=== PATIENT | female | born 1930 | race Caucasian/White ===

== ENCOUNTER 2017-02-23 12:12 | Inpatient (IN) | payer MEDICARE, BC ==
[2017-02-23] MEDS ORDERED: Sodium Chloride 0.9% 10 ML Syringe FLUSH PRN (12:17)
--- NOTE | 2017-02-23 12:55 | CT ---
Head CT Technique: Multiple axial sections through the brain were obtained. Intravenous contrast was not utilized. Comparison: No previous intracranial imaging. 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 Ventricles along with basal cisterns and sulci over convexities are mildly prominent. Diminished density noted within the periventricular white matter and subcortical white matter compatible with small vessel ischemic demyelination change. Several old lacunar infarcts are noted within the basal ganglia. No other abnormal parenchymal densities are seen. No evidence of intracranial hemorrhage. No midline shift or mass effect is seen. Atherosclerotic calcification seen within the basilar artery and within the carotid siphon. Mild areas of mucosal thickening are seen within the frontal and ethmoid sinuses. No acute calvarial abnormality is seen. Impression: 1. Senescent change as noted above. No acute abnormality is appreciated on noncontrast head CT study. Diagnostic code #2
--- NOTE | 2017-02-23 13:27 | CR ---
Right forearm: Two views of the right forearm were obtained. Bony structures are osteoporotic. No fracture or other bony abnormality is seen. Soft tissue swelling is noted. Impression: 1. Osteopenia and soft tissue swelling. 2. No acute bony abnormality is identified. Diagnostic code #2
[2017-02-23] MEDS ORDERED: Aspirin 81 MG Tab.Chew PO ONE (16:05)
--- NOTE | 2017-02-23 17:48 | EDM.PDOC ---
ED HPI GENERAL MEDICAL PROBLEM - General Chief Complaint: Neuro Symptoms/Deficits Stated Complaint: [facility] Time Seen by Provider: 02/23/17 12:16 Source of Information: Reports: Patient History Limitations: Reports: No Limitations - History of Present Illness INITIAL COMMENTS - FREE TEXT/NARRATIVE: The patient presents with right sided weakness. Her son found her on her floor this morning. He thinks she has been down since Thursday. The last time know well was 8am Thursday. He went out of town and found her this morning. She has right sided facial droop and right arm and leg weakness. She could not get up off the floor. She has no headache, fever, chills, cough , congestion and runny nose. She has no chest pain or shortness of breath. Onset: Sudden Duration: Day(s): (Last time known well was 8am Thursday) Location: Reports: Face, Upper Extremity, Right, Lower Extremity, Right Severity: Moderate Improves with: Reports: None Worsens with: Reports: None Associated Symptoms: Reports: No Other Symptoms Right Arm Pain Score (Numeric/FACES): 5 - Related Data Allergies Allergy/AdvReac Type Severity Reaction Status Date / Time No Known Allergies Allergy Verified 02/23/17 12:30 Home Meds: Home Meds Aspirin 81 mg PO BRK 02/23/17 [History] Bisoprolol/Hydrochlorothiazide [Ziac 10-6.25 MG] 1 tab PO DAILY 02/23/17 [ History] Latanoprost [Xalatan 0.005% Ophth Soln] 2.5 ml EYEBOTH BEDTIME 02/23/17 [History ] Multivitamin with Minerals [Multiple Vitamin] 1 cap PO DAILY 02/23/17 [History] cloNIDine [Catapres] 0.1 mg PO DAILY 02/23/17 [History] Past Medical History HEENT History: Reports: Impaired Vision Other HEENT History: wears corrective lenses Cardiovascular History: Reports: High Cholesterol, Hypertension [employer] EDUCATION History: Reports: Social & Family History - Tobacco Use Smoking Status *Q: Current Every Day Smoker Years of Tobacco use: 50 Packs/Tins Daily: 0.3 Used Tobacco, but Quit: No Second Hand Smoke Exposure: No - Caffeine Use Caffeine Use: Reports: Coffee - Recreational Drug Use Recreational Drug Use: No ED ROS GENERAL - Review of Systems Review Of Systems: See Below Constitutional: Reports: No Symptoms HEENT: Reports: No Symptoms Respiratory: Reports: No Symptoms Cardiovascular: Reports: No Symptoms Endocrine: Reports: No Symptoms GI/Abdominal: Reports: No Symptoms : Reports: No Symptoms Musculoskeletal: Reports: No Symptoms Skin: Reports: No Symptoms Neurological: Reports: Weakness (Right sided weakness and trouble speaking) ED EXAM, NEURO - Physical Exam Exam: See Below Exam Limited By: No Limitations General Appearance: Alert, No Apparent Distress Ears: Normal External Exam Nose: Normal Inspection Head Exam: Atraumatic, Normocephalic Neck: Normal Inspection Respiratory/Chest: No Respiratory Distress, Lungs Clear, Normal Breath Sounds Cardiovascular: Regular Rate, Rhythm, No Edema, No Murmur GI/Abdominal: Soft, Non-Tender, No Organomegaly, No Mass Neurological: Alert, Oriented x 3, Other (Right sided facial droop, right arm weakness and right arm weakness) Extremities: Other (Edema and ecchymosis to the right forearm. Erythema to the right hip but no pain upon palpation.) EKG INTERPRETATION EKG Date: 02/23/17 Time: 12:27 Rhythm: NSR Rate (Beats/Min): 91 [place]: Normal P-Wave: Present QRS: Normal ST-T: Normal QT: Normal EKG Interpretation Comments: LVH Course - Vital Signs Last Recorded V/S: Last Vital Signs Temp 99 F 02/23/17 12:25 Pulse 90 02/23/17 12:25 Resp 18 02/23/17 12:25 BP 166/141 H 02/23/17 12:25 Pulse Ox 90 L 02/23/17 12:25 - Orders/Labs/Meds Orders: Active Orders 24 hr Category Date Time Status Cardiac Monitoring [RC] . DIRECTED Care 02/23/17 12:17 Active EKG Documentation Completion [RC] STAT Care 02/23/17 12:17 Active Oxygen Therapy [RC] PRN Care 02/23/17 12:17 Active Peripheral IV Care [RC] Q2HR Care 02/23/17 12:17 Active CULTURE URINE [RM] Stat Lab 02/23/17 13:04 Received Sodium Chloride 0.9% [Saline Flush] Med 02/23/17 12:17 Active 10 ml FLUSH ASDIRECTED PRN Peripheral IV Insertion Adult [OM.PC] Stat Oth 02/23/17 12:17 Ordered Medication Orders Atenolol (Tenormin) 100 mg PO DAILY GURMEET Hydrochlorothiazide (Hydrochlorothiazide) 25 mg PO DAILY GURMEET Latanoprost (Xalatan 0.005% Ophth Soln) 0 ml EYEBOTH BEDTIME GURMEET Sodium Chloride (Saline Flush) 10 ml FLUSH ASDIRECTED PRN PRN Reason: Keep Vein Open Last Admin: 02/23/17 12:59 Dose: 10 ml Labs: Laboratory Tests 02/23/17 02/23/17 02/23/17 Range/Units 12:55 12:55 12:55 WBC 17.62 H (3.98-10.04) K/mm3 RBC 5.43 H (3.98-5.22) M/mm3 Hgb 16.8 H (11.2-15.7) gm/L Hct 48.7 H (34.1-44.9) % MCV 89.7 (79.4-94.8) fl MCH 30.9 (25.6-32.2) pg MCHC 34.5 (32.2-35.5) g/dl RDW Std Deviation 45.7 (36.4-46.3) fL Plt Count 410 H (182-369) K/mm3 MPV 9.9 (9.4-12.3) fl Neut % (Auto) 82.7 H (34.0-71.1) % Lymph % (Auto) 11.5 L (19.3-51.7) % Placer % (Auto) 5.4 (4.7-12.5) % Eos % (Auto) 0.1 L (0.7-5.8) Baso % (Auto) 0.1 (0.1-1.2) % Neut # (Auto) 14.58 H (1.56-6.13) K/mm3 Lymph # (Auto) 2.02 (1.18-3.74) K/mm3 Placer # (Auto) 0.95 H (0.24-0.36) K/mm3 Eos # (Auto) 0.01 L (0.04-0.36) K/mm3 Baso # (Auto) 0.02 (0.01-0.08) K/mm3 Manual Slide Review Normal smear PT 11.3 (8.0-13.0) SECONDS INR 1.03 APTT 24 (22-36) SECONDS Sodium 138 (136-145) mEq/L Potassium 3.4 L (3.5-5.1) mEq/L Chloride 99 (98-107) mEq/L Carbon Dioxide 25 (21-32) mEq/L Anion Gap 17.4 H (5-15) BUN 20 H (7-18) mg/dL Creatinine 0.8 (0.55-1.02) mg/dL Est Cr Clr Drug Dosing 40.11 mL/min Estimated GFR (MDRD) > 60 (>60) mL/min BUN/Creatinine Ratio 25.0 H (14-18) Glucose 113 (83-115) mg/dL Calcium 9.7 (8.5-10.1) mg/dL Total Bilirubin 0.9 (0.2-1.0) mg/dL AST 50 H (15-37) U/L ALT 40 (14-59) U/L Alkaline Phosphatase 92 (46-116) U/L Troponin I 0.043 (0.00-0.056) ng/mL Total Protein 7.0 (6.4-8.2) g/dl Albumin 3.6 (3.4-5.0) g/dl Globulin 3.4 gm/dL Albumin/Globulin Ratio 1.1 (1-2) Urine Color (Yellow) Urine Appearance (Clear) Urine pH (5.0-8.0) Ur Specific [place] (1.005-1.030) Urine Protein (Negative) Urine Glucose (UA) (Negative) Urine Ketones (Negative) Urine Occult Blood (Negative) Urine Nitrite (Negative) Urine Bilirubin (Negative) Urine Urobilinogen (0.2-1.0) Ur Leukocyte Esterase (Negative) Urine RBC (0-5) /hpf Urine WBC (0-5) /hpf Ur Epithelial Cells Ur Squamous Epith Cells (0-5) /hpf Urine Bacteria (FEW) /hpf Urine Mucus (FEW) /hpf 02/23/17 Range/Units 13:04 WBC (3.98-10.04) K/mm3 RBC (3.98-5.22) M/mm3 Hgb (11.2-15.7) gm/L Hct (34.1-44.9) % MCV (79.4-94.8) fl MCH (25.6-32.2) pg MCHC (32.2-35.5) g/dl RDW Std Deviation (36.4-46.3) fL Plt Count (182-369) K/mm3 MPV (9.4-12.3) fl Neut % (Auto) (34.0-71.1) % Lymph % (Auto) (19.3-51.7) % Placer % (Auto) (4.7-12.5) % Eos % (Auto) (0.7-5.8) Baso % (Auto) (0.1-1.2) % Neut # (Auto) (1.56-6.13) K/mm3 Lymph # (Auto) (1.18-3.74) K/mm3 Placer # (Auto) (0.24-0.36) K/mm3 Eos # (Auto) (0.04-0.36) K/mm3 Baso # (Auto) (0.01-0.08) K/mm3 Manual Slide Review PT (8.0-13.0) SECONDS INR APTT (22-36) SECONDS Sodium (136-145) mEq/L Potassium (3.5-5.1) mEq/L Chloride (98-107) mEq/L Carbon Dioxide (21-32) mEq/L Anion Gap (5-15) BUN (7-18) mg/dL Creatinine (0.55-1.02) mg/dL Est Cr Clr Drug Dosing mL/min Estimated GFR (MDRD) (>60) mL/min BUN/Creatinine Ratio (14-18) Glucose (83-115) mg/dL Calcium (8.5-10.1) mg/dL Total Bilirubin (0.2-1.0) mg/dL AST (15-37) U/L ALT (14-59) U/L Alkaline Phosphatase (46-116) U/L Troponin I (0.00-0.056) ng/mL Total Protein (6.4-8.2) g/dl Albumin (3.4-5.0) g/dl Globulin gm/dL Albumin/Globulin Ratio (1-2) Urine Color Yellow (Yellow) Urine Appearance Clear (Clear) Urine pH 6.0 (5.0-8.0) Ur Specific [place] > or = 1.030 (1.005-1.030) Urine Protein 2+ H (Negative) Urine Glucose (UA) Negative (Negative) Urine Ketones Trace H (Negative) Urine Occult Blood 2+ H (Negative) Urine Nitrite Negative (Negative) Urine Bilirubin 1+ H (Negative) Urine Urobilinogen 0.2 (0.2-1.0) Ur Leukocyte Esterase Trace H (Negative) Urine RBC 10-20 H (0-5) /hpf Urine WBC 5-10 H (0-5) /hpf Ur Epithelial Cells Not Reportable Ur Squamous Epith Cells 0-5 (0-5) /hpf Urine Bacteria Moderate H (FEW) /hpf Urine Mucus Few (FEW) /hpf Meds: Medications Generic Name Dose Route Start Last Admin Trade Name Freq PRN Reason Stop Dose Admin Atenolol 100 mg 02/24/17 09:00 Tenormin PO DAILY GURMEET Hydrochlorothiazide 25 mg 02/24/17 09:00 Hydrochlorothiazide PO DAILY GURMEET Latanoprost 0 ml 02/23/17 21:00 Xalatan 0.005% Ophth Soln EYEBOTH BEDTIME GURMEET Sodium Chloride 10 ml 02/23/17 12:17 02/23/17 12:59 Saline Flush FLUSH 10 ml ASDIRECTED PRN Administration Keep Vein Open Discontinued Medications Generic Name Dose Route Start Last Admin Trade Name Freq PRN Reason Stop Dose Admin Aspirin 324 mg 02/23/17 16:05 02/23/17 16:50 Aspirin PO 02/23/17 16:06 324 mg ONETIME ONE Administration - Re-Assessments/Exams Free Text/Narrative Re-Assessment/Exam: 02/23/17 17:50 A stroke alert was called with last known well 8am Thursday. I went to the room right away. Her CT shows old infarct is identified within the distribution right middle cerebral artery is seen. Senescent change as noted above. No acute abnormality is appreciated on noncontrast head CT study. Her EKG shows a NSR with no acute changes. Her WBC was elevated at 17.62. Her Hgb was elevated at 16.8. Her INR was normal at 1.03. Her K was 3.4. Her onion gap was elevated at 17.4. Her troponin was negative. 02/23/17 18:01 I feel she needs to be admitted. I called Dr Cage and she agreed to the admission. Departure - Departure Time of Disposition: 18:05 Disposition: Admitted As Inpatient 68 Condition: Fair Clinical Impression: Cerebrovascular accident (CVA) Qualifiers: CVA mechanism: unspecified Qualified Code(s): I63.9 - Cerebral infarction, unspecified Fall Qualifiers: Encounter type: initial encounter Qualified Code(s): W19.XXXA - Unspecified fall, initial encounter Contusion of right forearm Qualifiers: Encounter type: initial encounter Qualified Code(s): S50.11XA - Contusion of right forearm, initial encounter - Discharge Information - My Orders Last 24 Hours: My Active Orders 02/23/17 12:17 Cardiac Monitoring [RC] . DIRECTED EKG Documentation Completion [RC] STAT Oxygen Therapy [RC] PRN Peripheral IV Care [RC] Q2HR Sodium Chloride 0.9% [Saline Flush] 10 ml FLUSH ASDIRECTED PRN Peripheral IV Insertion Adult [OM.PC] Stat 02/23/17 13:04 CULTURE URINE [RM] Stat - Assessment/Plan Last 24 Hours: My Active Orders 02/23/17 12:17 Cardiac Monitoring [RC] . DIRECTED EKG Documentation Completion [RC] STAT Oxygen Therapy [RC] PRN Peripheral IV Care [RC] Q2HR Sodium Chloride 0.9% [Saline Flush] 10 ml FLUSH ASDIRECTED PRN Peripheral IV Insertion Adult [OM.PC] Stat 02/23/17 13:04 CULTURE URINE [RM] Stat
--- NOTE | 2017-02-23 19:23 | PCM.HP ---
H&P History of Present Illness - General Date of Service: 02/23/17 Admit Problem/Dx: Admission Diagnosis/Problem Admission Diagnosis/Problem Ischemic stroke Source of Information: Family, Provider History Limitations: Reports: No Limitations - History of Present Illness Initial Comments - Free Text/Narative: 86 year old female who was found in her home on the floor, duration is unknown. Her last conatct with family was Thursday morning. She could not get off the floor without assistance. the patient is weak on the right side, has difficulty speaking. She denied change in vision, headache, diaphoresis, CP, dizziness or SOB. There is no previous of TIA/CVA. The family declined transfer to [facility]. Onset of Symptoms: Reports: Unknown/Unsure Duration of Symptoms: Reports: Day(s):, Getting Worse Location: Reports: Face, Upper Extremity, Right Severity: Moderate Improves with: Reports: None Worsens with: Reports: None Associated Symptoms: Reports: Weakness Right Arm Pain Score (Numeric/FACES): 5 - Related Data Allergies/Adverse Reactions: Allergies Allergy/AdvReac Type Severity Reaction Status Date / Time No Known Allergies Allergy Verified 02/23/17 12:30 Home Medications: Home Meds Aspirin 81 mg PO BRK 02/23/17 [History] Bisoprolol/Hydrochlorothiazide [Ziac 10-6.25 MG] 1 tab PO DAILY 02/23/17 [ History] Latanoprost [Xalatan 0.005% Ophth Soln] 2.5 ml EYEBOTH BEDTIME 02/23/17 [History ] Multivitamin with Minerals [Multiple Vitamin] 1 cap PO DAILY 02/23/17 [History] cloNIDine [Catapres] 0.1 mg PO DAILY 02/23/17 [History] Past Medical History HEENT History: Reports: Impaired Vision Other HEENT History: wears corrective lenses Cardiovascular History: Reports: High Cholesterol, Hypertension Genitourinary History: Reports: Urinary Incontinence 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: Reports: Social & Family History - Tobacco Use Smoking Status *Q: Current Every Day Smoker Years of Tobacco use: 55 Packs/Tins Daily: 1.5 Used Tobacco, but Quit: No Second Hand Smoke Exposure: No - Caffeine Use Caffeine Use: Reports: Coffee Other Caffeine Use: 1 cup a day - Recreational Drug Use Recreational Drug Use: No H&P Review of Systems - Review of Systems: Review Of Systems: See Below General: Reports: No Symptoms HEENT: Reports: No Symptoms Pulmonary: Reports: No Symptoms Cardiovascular: Reports: No Symptoms Gastrointestinal: Reports: No Symptoms Genitourinary: Reports: No Symptoms Musculoskeletal: Reports: No Symptoms Skin: Reports: No Symptoms Psychiatric: Reports: No Symptoms Neurological: Reports: Trouble Speaking, Change in Speech Hematologic/Lymphatic: Reports: No Symptoms Immunologic: Reports: No Symptoms Exam - Exam Exam: See Below - Vital Signs Vital Signs: Last Vital Signs Temp 36.6 C 02/23/17 17:38 Pulse 88 02/23/17 17:38 Resp 20 02/23/17 17:38 BP 108/73 02/23/17 17:38 Pulse Ox 94 L 02/23/17 17:38 Weight: 46.72 kg - Exam Quality Assessment: Supplemental Oxygen, DVT Prophylaxis General: Alert, Oriented, Cooperative HEENT: Conjunctiva Clear, EACs Clear, Pupils Equal, Pupils Reactive, PERRLA Neck: Supple, Trachea Midline Lungs: Normal Respiratory Effort Cardiovascular: Regular Rate, Regular Rhythm GI/Abdominal Exam: Normal Bowel Sounds, Soft, Non-Tender, No Distention (Female) Exam: Deferred Rectal (Female) Exam: Deferred Back Exam: Normal Inspection Extremities: Normal Inspection Skin: Warm Neurological: Sensation Intact, Focal Deficit, Reflexes Unequal Neuro Extensive - Mental Status: Alert, Oriented x3, Normal Mood/Affect, Normal Cognition, Memory Intact Neuro Extensive - Motor, Sensory, Reflexes: Dysarthria Psychiatric: Alert, Normal Affect, Normal Mood - Patient Data Result Diagrams: 02/23/17 12:55 02/23/17 12:55 *Q Meaningful Use (ADM) - VTE *Q VTE Criteria *Q: - Stroke *Q Stroke Criteria *Q: - AMI *Q AMI Criteria *Q: - Problem List (1) Cerebrovascular accident (CVA) SNOMED Code(s): 970349376 ICD Code: I63.9 - CEREBRAL INFARCTION, UNSPECIFIED Status: Acute Current Visit: Yes Qualifiers: CVA mechanism: unspecified Qualified Code(s): I63.9 - Cerebral infarction, unspecified (2) Contusion of right forearm SNOMED Code(s): 02322032 ICD Code: S50.11XA - CONTUSION OF RIGHT FOREARM, INITIAL ENCOUNTER Status: Acute Current Visit: Yes Qualifiers: Encounter type: initial encounter Qualified Code(s): S50.11XA - Contusion of right forearm, initial encounter (3) Fall SNOMED Code(s): 2522870, 431204835 ICD Code: W19.XXXA - UNSPECIFIED FALL, INITIAL ENCOUNTER Status: Acute Current Visit: Yes Qualifiers: Encounter type: initial encounter Qualified Code(s): W19.XXXA - Unspecified fall, initial encounter Problem List Initiated/Reviewed/Updated: Yes Orders Last 24hrs: Active Orders 24 hr Category Date Time Status Aspiration Precautions [RC] ASDIRECTED Care 02/23/17 17:20 Active Bedrest [RC] ASDIRECTED Care 02/23/17 17:14 Active HOB [Head of Bed Elevation] [RC] ASDIRECTED Care 02/23/17 17:20 Active Neuro Check [RC] BID Care 02/23/17 17:19 Active Swallow Screen [Nursing Bedside Swallow Screen] [RC] Care 02/23/17 17:00 Active ASDIRECTED Vital Signs [RC] Q6HR Care 02/23/17 17:11 Active Consult to Occupational Therapy [OT Evaluation and Cons 02/23/17 17:15 Active Treatment] [CONS] Routine Consult to Physical Therapy [PT Evaluation and Cons 02/23/17 17:14 Active Treatment] [CONS] Routine Clear Liquid Diet [DIET] Diet 02/23/17 Dinner Active Brain wo Cont [MR] Routine Exams 02/24/17 09:00 Ordered Carotid Comp [US] Routine Exams 02/24/17 08:00 Ordered Echo Comp wo Cont [US] Routine Exams 02/24/17 08:00 Ordered BMP [BASIC METABOLIC PANEL,BMP] [CHEM] DAILY Lab 02/24/17 05:00 Ordered BMP [BASIC METABOLIC PANEL,BMP] [CHEM] DAILY Lab 02/25/17 05:00 Ordered BMP [BASIC METABOLIC PANEL,BMP] [CHEM] DAILY Lab 02/26/17 05:00 Ordered BMP [BASIC METABOLIC PANEL,BMP] [CHEM] DAILY Lab 02/27/17 05:00 Ordered CBC WITH AUTO DIFF [HEME] DAILY Lab 02/24/17 05:00 Ordered CBC WITH AUTO DIFF [HEME] DAILY Lab 02/25/17 05:00 Ordered CBC WITH AUTO DIFF [HEME] DAILY Lab 02/26/17 05:00 Ordered CBC WITH AUTO DIFF [HEME] DAILY Lab 02/27/17 05:00 Ordered CRP [C-REACTIVE PROTEIN] [CHEM] DAILY Lab 02/24/17 05:00 Ordered CRP [C-REACTIVE PROTEIN] [CHEM] DAILY Lab 02/25/17 05:00 Ordered CRP [C-REACTIVE PROTEIN] [CHEM] DAILY Lab 02/26/17 05:00 Ordered CRP [C-REACTIVE PROTEIN] [CHEM] DAILY Lab 02/27/17 05:00 Ordered FOLIC ACID [CHEM] Routine Lab 02/24/17 05:00 Ordered LIPID PANEL [CHEM] Routine Lab 02/24/17 05:00 Ordered MAGNESIUM [CHEM] DAILY Lab 02/24/17 05:00 Ordered MAGNESIUM [CHEM] DAILY Lab 02/25/17 05:00 Ordered MAGNESIUM [CHEM] DAILY Lab 02/26/17 05:00 Ordered MAGNESIUM [CHEM] DAILY Lab 02/27/17 05:00 Ordered TSH [CHEM] Routine Lab 02/24/17 05:00 Ordered VITAMIN B12 [CHEM] Routine Lab 02/24/17 05:00 Ordered Atenolol [Tenormin] Med 02/24/17 09:00 Active 100 mg PO DAILY Hydrochlorothiazide Med 02/24/17 09:00 Active 25 mg PO DAILY Latanoprost [Xalatan 0.005% Ophth Soln] Med 02/23/17 21:00 Active 0 ml EYEBOTH BEDTIME Resuscitation Status Routine Resus Stat 02/23/17 18:15 Ordered Medication Orders Atenolol (Tenormin) 100 mg PO DAILY GURMEET Hydrochlorothiazide (Hydrochlorothiazide) 25 mg PO DAILY GURMEET Latanoprost (Xalatan 0.005% Ophth Soln) 0 ml EYEBOTH BEDTIME GURMEET Sodium Chloride (Saline Flush) 10 ml FLUSH ASDIRECTED PRN PRN Reason: Keep Vein Open Last Admin: 02/23/17 12:59 Dose: 10 ml Assessment/Plan Comment:: Impression: CVA with right sided deficits Noninvasive testing is ordered. HTN Lipid status is unknown Plan: CVA protocol Aspiration precaution Swallow eval bedside, followed by formal by SP ASA 325 mg daily CM/OT/PT DVT/GI prophylaxis
[2017-02-23] MEDS ORDERED: hydrALAZINE 20 MG/ML SDV IVPUSH PRN (19:28)
[2017-02-23] MEDS: Latanoprost 0.005% Ophth Soln 2.5 ML Bottle EYEBOTH SCH (20:20)
[2017-02-23] MEDS: Simvastatin 10 MG Tab PO SCH (20:20)
[2017-02-24] MEDS: Simvastatin 10 MG Tab PO SCH ×2 (04:01→20:28)
[2017-02-24] MEDS ORDERED: Pneumococcal 13-Valent Conjugate Vaccine 0.5 ML Syringe IM ONE (08:07)
[2017-02-24] MEDS ORDERED: Diphtheria,Pertussis(Acell),Tetanus Vaccine 0.5 ML SDV IM ONE (09:00)
[2017-02-24] MEDS ORDERED: Atenolol 50 MG Tab PO SCH (09:00)
--- NOTE | 2017-02-24 09:08 | PCM.PN ---
- General Info Date of Service: 02/24/17 Admission Dx/Problem (Free Text): Admission Diagnosis/Problem Admission Diagnosis/Problem Ischemic stroke Subjective Update: Follow up Functional Status: Reports: Pain Controlled, Tolerating Diet, Urinating. Denies : New Symptoms - Review of Systems General: Reports: Weakness. Denies: Fever, Fatigue, Malaise, Chills HEENT: Reports: No Symptoms Pulmonary: Denies: Shortness of Breath Cardiovascular: Denies: Chest Pain Gastrointestinal: Denies: Abdominal Pain, Nausea, Vomiting Genitourinary: Reports: No Symptoms Musculoskeletal: Reports: No Symptoms Skin: Reports: Bruising (right arm). Denies: Cyanosis Neurological: Reports: Pre-Existing Deficit, Trouble Speaking, Difficulty Walking, Weakness, Change in Speech, Gait Disturbance. Denies: Confusion Psychiatric: Denies: Confusion, Depression, Anxiety, Agitation, Hallucinations, Other Systems Review Comment:: No significant overnight or acute issues. Her UA is growing GNR organism. Her WBC is now down to 16.13 from 17.62. Her K is low today at 3.0. Her lipid panel is abnormal. She denies any acute issues. - Patient Data Vitals - Most Recent: Last Vital Signs Temp 36.5 C 02/23/17 23:34 Pulse 98 02/23/17 23:35 Resp 20 02/23/17 23:34 BP 135/72 02/23/17 23:35 Pulse Ox 90 L 02/23/17 23:35 Weight - Most Recent: 44.906 kg I&O - Last 24 Hours: Intake & Output 02/23/17 02/24/17 02/24/17 22:59 06:59 14:59 Intake Total 100 Balance 100 Lab Results Last 24 Hours: Laboratory Results - last 24 hr 02/24/17 02/24/17 02/24/17 Range/Units 05:10 05:10 05:10 WBC (3.98-10.04) K/mm3 RBC (3.98-5.22) M/mm3 Hgb (11.2-15.7) gm/L Hct (34.1-44.9) % MCV (79.4-94.8) fl MCH (25.6-32.2) pg MCHC (32.2-35.5) g/dl RDW Std Deviation (36.4-46.3) fL Plt Count (182-369) K/mm3 MPV (9.4-12.3) fl Neut % (Auto) (34.0-71.1) % Lymph % (Auto) (19.3-51.7) % [place] % (Auto) (4.7-12.5) % Eos % (Auto) (0.7-5.8) Baso % (Auto) (0.1-1.2) % Neut # (Auto) (1.56-6.13) K/mm3 Lymph # (Auto) (1.18-3.74) K/mm3 [place] # (Auto) (0.24-0.36) K/mm3 Eos # (Auto) (0.04-0.36) K/mm3 Baso # (Auto) (0.01-0.08) K/mm3 Manual Slide Review Sodium 140 (136-145) mEq/L Potassium 3.0 L (3.5-5.1) mEq/L Chloride 100 (98-107) mEq/L Carbon Dioxide 25 (21-32) mEq/L Anion Gap 18.0 H (5-15) BUN 34 H (7-18) mg/dL Creatinine 1.1 H (0.55-1.02) mg/dL Est Cr Clr Drug Dosing 26.99 mL/min Estimated GFR (MDRD) 47 (>60) mL/min BUN/Creatinine Ratio 30.9 H (14-18) Glucose 101 (83-115) mg/dL Calcium 9.4 (8.5-10.1) mg/dL Magnesium 2.0 (1.8-2.4) mg/dl Creatine Kinase 502 H (26-192) U/L C-Reactive Protein 3.8 H* (<1.0) mg/dL Triglycerides 179 H (<150) mg/dL Cholesterol 219 H (<200) mg/dL LDL Cholesterol Direct 135 H* (<100) mg/dL HDL Cholesterol 51.0 (40-59) mg/dL Vitamin B12 1398 H (193-986) pg/ml Folate 85.8 H (8.6-58.9) ng/mL TSH 3rd Generation 1.708 (0.358-3.74) uIU/mL 02/24/17 Range/Units 05:18 WBC 16.13 H (3.98-10.04) K/mm3 RBC 5.17 (3.98-5.22) M/mm3 Hgb 16.2 H (11.2-15.7) gm/L Hct 47.1 H (34.1-44.9) % MCV 91.1 (79.4-94.8) fl MCH 31.3 (25.6-32.2) pg MCHC 34.4 (32.2-35.5) g/dl RDW Std Deviation 46.8 H (36.4-46.3) fL Plt Count 387 H (182-369) K/mm3 MPV 10.4 (9.4-12.3) fl Neut % (Auto) 74.7 H (34.0-71.1) % Lymph % (Auto) 17.0 L (19.3-51.7) % [place] % (Auto) 7.7 (4.7-12.5) % Eos % (Auto) 0.2 L (0.7-5.8) Baso % (Auto) 0.1 (0.1-1.2) % Neut # (Auto) 12.03 H (1.56-6.13) K/mm3 Lymph # (Auto) 2.75 (1.18-3.74) K/mm3 [place] # (Auto) 1.24 H (0.24-0.36) K/mm3 Eos # (Auto) 0.04 (0.04-0.36) K/mm3 Baso # (Auto) 0.02 (0.01-0.08) K/mm3 Manual Slide Review Normal smear Sodium (136-145) mEq/L Potassium (3.5-5.1) mEq/L Chloride (98-107) mEq/L Carbon Dioxide (21-32) mEq/L Anion Gap (5-15) BUN (7-18) mg/dL Creatinine (0.55-1.02) mg/dL Est Cr Clr Drug Dosing mL/min Estimated GFR (MDRD) (>60) mL/min BUN/Creatinine Ratio (14-18) Glucose (83-115) mg/dL Calcium (8.5-10.1) mg/dL Magnesium (1.8-2.4) mg/dl Creatine Kinase (26-192) U/L C-Reactive Protein (<1.0) mg/dL Triglycerides (<150) mg/dL Cholesterol (<200) mg/dL LDL Cholesterol Direct (<100) mg/dL HDL Cholesterol (40-59) mg/dL Vitamin B12 (193-986) pg/ml Folate (8.6-58.9) ng/mL TSH 3rd Generation (0.358-3.74) uIU/mL Med Orders - Current: Current Medications Aspirin (Ecotrin) 325 mg PO DAILY [facility] Atenolol (Tenormin) 100 mg PO DAILY [facility] Hydralazine HCl (Apresoline) 10 mg IVPUSH Q6H PRN PRN Reason: Hypertension Hydrochlorothiazide (Hydrochlorothiazide) 25 mg PO DAILY [facility] Latanoprost (Xalatan 0.005% Ophth Soln) 0 ml EYEBOTH BEDTIME [facility] Last Admin: 02/23/17 20:20 Dose: 1 drop Miscellaneous Information (Remove Patch) 1 ea TRDERM DAILY [facility] Nicotine (Habitrol) 14 mg TRDERM DAILY [facility] Simvastatin (Zocor) 10 mg PO BEDTIME [facility] Last Admin: 02/24/17 04:01 Dose: Not Given Sodium Chloride (Saline Flush) 10 ml FLUSH ASDIRECTED PRN PRN Reason: Keep Vein Open Last Admin: 02/23/17 12:59 Dose: 10 ml Discontinued Medications Aspirin (Aspirin) 324 mg PO ONETIME ONE Stop: 02/23/17 16:06 Last Admin: 02/23/17 16:50 Dose: 324 mg Diphtheria/Tetanus/Acell Pertussis (Adacel) 0.5 ml IM .ONCE ONE Stop: 02/24/17 09:01 Pneumococcal 13-Valent Conj Vacc (Prevnar 13) 0.5 ml IM .ONCE ONE Stop: 02/24/17 08:08 - Exam General: Alert, Cooperative, No Acute Distress HEENT: Pupils Equal, Pupils Reactive, Mucous Membr. Moist/[place], Other (right sided facial droop) Neck: Supple, Trachea Midline, No JVD, No Thyromegaly Lungs: Clear to Auscultation, Normal Respiratory Effort Cardiovascular: Regular Rate, Regular Rhythm GI/Abdominal Exam: Normal Bowel Sounds, Soft, Non-Tender, No Organomegaly, No Distention, No Abnormal Bruit, No Mass (Female) Exam: Deferred Back Exam: Normal Inspection, Decreased Range of Motion Extremities: Non-Tender, No Pedal Edema, Normal Capillary Refill, Other (right distal arm hematoma; bilateral hands: severely contracted and deviated) Peripheral Pulses: 2+: Dorsalis Pedis (L), Dorsalis Pedis (R) Skin: Warm, Dry, Intact, Ecchymosis Neurological: No New Focal Deficit, Other (Right sided weakness, pronator drif on right hand, and facial droop to the right). No: Normal Gait, Normal Speech, Normal Tone, Strength Equal Bilateral, Reflexes Equal Bilateral, Cranial Nerves Intact Psy/Mental Status: Alert, Normal Mood. No: Anxious, Suicidal Ideation, Homicidal Ideation - Problem List Review Problem List Initiated/Reviewed/Updated: Yes - Plan Plan:: Assessment/Plan: Acute: Acute CVA with right sided deficits - Risk Factors: Old CVA, HTN, HLD and Tobacco Dependence - She also presented with Malignant HTN - Noninvasive testing ordered: MRI, 2D echo and Carotid Studies Malignant HTN - Acute on Chronic - Not fully controlled - Will optimize BP meds - Resume home Clonidine regimen Dyslipidemia - Tri, Cho 219, LDL 135 and HDL 51 - On simvastatin 20 mg po daily - Start AHA diet once okayed by DEPUTY BAILIFF Considerably Elevated B12 and Folate - Patient take OTC supplements per family UTI Positive E. coli - Uncomplicated - UA Cx: GNR - Start 1 gram IV Rocephin Mild Renal Insufficiency - GFR > 60---> 47 - 2/2 poor fluid intake per family - Start IVF for maintenance Hypokalemia - 2/2 Inadequate Intake - Pharmacy to replete and monitor Uterine Prolapse Stage 4 - Acute on Chronic - We were able to easily reduced it - Clinical Technologist consult after discharge Chronic: Impaired Vision HTN HLD Tobacco Dependence, refused nicotine patch Urinary Incontinence Severe OA Hx/o Uterine Prolapse Plan: She is fairly stable Continue CVA protocol Aspiration/Fall Precaution Swallow eval bedside, followed by formal by SP CM/OT/PT consult DVT/GI prophylaxis Recommend SNF/Rehab due to residual deficits Will update family once we get result of MRI, 2D echo and Carotid Studies Spoke to family present at bedside, updated them about her progress and her UTI.
[2017-02-24] MEDS ORDERED: Magnesium Hydroxide 400 MG/5 ML Susp 30 ML Cup PO PRN (09:32)
[2017-02-24] MEDS: Hydrochlorothiazide 25 MG Tab PO SCH (09:36)
[2017-02-24] MEDS: Aspirin 325 MG Tab.EC PO SCH (09:37)
[2017-02-24] MEDS: Nicotine 14 MG/24 Hr Patch TRDERM SCH (09:41)
--- NOTE | 2017-02-24 11:09 | PCM.SN ---
- Free Text/Narrative Note: Nursing summoned me to room after shower for a bulge from patient's vagina noted after bathing. Patient states has had this present for "many years", does not cause pain or discomfort at all, no hx of UTI's or recurrent UTI's. She has not had a MARKETING OPERATIONS CONSULTANT exam for many years. States "I have had that ever since I had my 4 kids". Limited exam of pelvic area while patient sitting in shower chair reveals grade 4 uterine prolapse, tissue is pink and moist. Prolapse was reduced with ease. Did not cause patient any discomfort [id number]. Will recommend f/up with MARKETING OPERATIONS CONSULTANT after discharge as outpatient. Could benefit from pessary if interested and if defers surgical option.
[2017-02-24] MEDS ORDERED: LORazepam 2 MG/ML MDV IVPUSH ONE (13:11)
[2017-02-24] MEDS: Acetaminophen 325 MG Tab PO PRN (13:11)
[2017-02-24] MEDS: Potassium Chloride 20 MEQ Tab.ER PO SCH ×3 (13:11→20:27)
--- NOTE | 2017-02-24 13:28 | US ---
Carotid ultrasound: Duplex and color flow imaging was obtained of the carotid arteries. Large amount of plaque is identified within the carotid bulb and origins of the internal and external carotid arteries. Plaque also noted within the distal common carotid arteries. Plaque is mostly soft although some plaque within the carotid bulb and origins of the internal carotid arteries show calcification. Velocity measurements Right side: CCA has a peak systolic velocity of 0.52 m/s. ICA has a peak systolic velocity of 2.84 m/s and peak end-diastolic velocity of 0.67 m/s. ECA has a peak systolic velocity of 0.76 m/s. Vertebral artery has a peak systolic velocity of 0.52 m/s. ICA/CCA ratio is 5.47 Left side: CCA has a peak systolic velocity of 0.77 m/s. ICA has a peak systolic velocity of 1.94 m/s and peak end-diastolic velocity of 0.37 m/s. ECA has a peak systolic velocity of 3.87 m/s. Vertebral artery has a peak systolic velocity of 0.89 m/s. There is some reversal of flow within the left vertebral artery. Impression: 1. Plaque as described above. 2. Velocity measurement within the right internal carotid artery correspond to stenosis in the range of 50-79% (visually stenosis is at the upper limits of this range). 3. Velocity measurements within the left internal carotid artery correspond to stenosis at the lower range of 50-79%. 4. Greater than 50% stenosis seen within the left external carotid artery. 5. Intermittent reversal of flow within the left vertebral artery suggesting mild subclavian steal. Diagnostic code #3
--- NOTE | 2017-02-24 15:26 | MR ---
MRI brain Technique: T1 sagittal; T2, T2 FLAIR, T1 and diffusion axial; T1 FLAIR coronal images were obtained through the brain. Findings: Old infarct is noted within the distribution of the right middle cerebral artery. There is increased signal being seen within the periventricular white matter as well as subcortical white matter within the right posterior temporal and parietal regions. These findings are compatible with small vessel ischemic demyelination change. There is an acute diffusion abnormality being seen within the left periventricular white matter measuring about 1.4 cm. This is compatible with fairly recent small white matter infarct. This appears to be irreversible as minimal increased signal is seen in this area on the FLAIR sequence. Several old lacunar infarcts are noted within the basal ganglia. Ventricles along with basal cisterns and sulci over the convexities are mildly prominent. Impression: 1. 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 2. Areas of small vessel ischemic demyelination change as described above. 3. Small fairly acute white matter infarct within left periventricular white matter measuring 1.4 cm. Diagnostic code #3
[2017-02-24] MEDS ORDERED: cefTRIAXone 1 GM in Sodium Chloride 0.9% 100 ML IV ONE (18:49)
[2017-02-24] MEDS: Sodium Chloride 0.9% 1,000 ML IV SCH (19:37)
[2017-02-24] MEDS: Latanoprost 0.005% Ophth Soln 2.5 ML Bottle EYEBOTH SCH (20:28)
[2017-02-24] MEDS ORDERED: Ondansetron 4 MG/2 ML SDV IVPUSH PRN (23:43)
[2017-02-25] MEDS: Sodium Chloride 0.9% 1,000 ML IV SCH (05:29)
[2017-02-25] MEDS ORDERED: Aspirin 81 MG Tab.Chew PO SCH (07:00)
--- NOTE | 2017-02-25 07:59 | PCM.PN ---
- General Info Date of Service: 02/25/17 Admission Dx/Problem (Free Text): Admission Diagnosis/Problem Admission Diagnosis/Problem Ischemic stroke Kimberly is seen this morning. She is resting in the chair, would like to go to bed to rest. Transfer with two assist to bed. She is feeling better. Speech is improving. Strength is slowly improving. She is making strides with therapies. She denies pain, SOB, CP, ZAVALA, back pain, abd pain, pain to vagina/pelvis with regards to uterine prolapse. No diarrhea. She did have vomiting last evening after taking pills, specifically potassium supplement. No further n/v this morning, did eat breakfast, tolerated well. Long discussion with family this morning re: labs, VS, progress with PT. Spoke with them about findings of uterine prolapse yesterday. Family was unaware she has had this, she has never spoken of this to them. Reviewed with them that this may be cause of or contributing to UTI, likely she may have chronic UTI or low grade UTI all the time with this significant prolapse. Family reports she has had urinary frequency, up to every 15 minutes for years. Discussed tx options for this and consult with FILM WAXER. Family wishes to have consult as inpatient. Call was placed to Dr. Menezes, reviewed case with Dr. Menezes today. He will see patient at some point today in evaluation. Functional Status: Reports: Pain Controlled - Review of Systems General: Reports: Weakness HEENT: Reports: No Symptoms Pulmonary: Reports: No Symptoms. Denies: Shortness of Breath, Cough Cardiovascular: Reports: No Symptoms. Denies: Chest Pain Gastrointestinal: Reports: No Symptoms. Denies: Abdominal Pain, Diarrhea, Nausea, Vomiting Genitourinary: Reports: No Symptoms, Other (uterine prolapse) Musculoskeletal: Reports: No Symptoms Skin: Reports: No Symptoms Neurological: Reports: Trouble Speaking, Difficulty Walking, Weakness Psychiatric: Reports: No Symptoms - Patient Data Vitals - Most Recent: Last Vital Signs Temp 98.2 F 02/25/17 03:24 Pulse 69 02/25/17 03:24 Resp 18 02/25/17 03:24 BP 109/75 02/25/17 03:24 Pulse Ox 94 L 02/25/17 03:24 Weight - Most Recent: 98 lb 12.8 oz I&O - Last 24 Hours: Intake & Output 02/24/17 02/25/17 02/25/17 22:59 06:59 14:59 Intake Total 960 1453 Output Total 150 125 Balance 810 1328 Lab Results Last 24 Hours: Laboratory Results - last 24 hr 02/24/17 02/25/17 02/25/17 Range/Units 05:10 06:35 06:35 WBC 20.01 H (3.98-10.04) K/mm3 RBC 4.65 (3.98-5.22) M/mm3 Hgb 14.7 (11.2-15.7) gm/L Hct 43.8 (34.1-44.9) % MCV 94.2 (79.4-94.8) fl MCH 31.6 (25.6-32.2) pg MCHC 33.6 (32.2-35.5) g/dl RDW Std Deviation 48.3 H (36.4-46.3) fL Plt Count 321 (182-369) K/mm3 MPV 10.0 (9.4-12.3) fl Neut % (Auto) 85.0 H (34.0-71.1) % Lymph % (Auto) 9.4 L (19.3-51.7) % [place] % (Auto) 5.2 (4.7-12.5) % Eos % (Auto) 0 L (0.7-5.8) Baso % (Auto) 0.1 (0.1-1.2) % Neut # (Auto) 16.99 H (1.56-6.13) K/mm3 Lymph # (Auto) 1.88 (1.18-3.74) K/mm3 [place] # (Auto) 1.05 H (0.24-0.36) K/mm3 Eos # (Auto) 0.01 L (0.04-0.36) K/mm3 Baso # (Auto) 0.02 (0.01-0.08) K/mm3 Manual Slide Review Abnormal smear Sodium 141 (136-145) mEq/L Potassium 4.4 (3.5-5.1) mEq/L Chloride 109 H (98-107) mEq/L Carbon Dioxide 24 (21-32) mEq/L Anion Gap 12.4 (5-15) BUN 28 H (7-18) mg/dL Creatinine 0.7 (0.55-1.02) mg/dL Est Cr Clr Drug Dosing 42.32 mL/min Estimated GFR (MDRD) > 60 (>60) mL/min BUN/Creatinine Ratio 40.0 H (14-18) Glucose 125 H (83-115) mg/dL Calcium 8.8 (8.5-10.1) mg/dL Magnesium 1.8 (1.8-2.4) mg/dl Creatine Kinase 502 H (26-192) U/L C-Reactive Protein 4.4 H* (<1.0) mg/dL Med Orders - Current: Current Medications Acetaminophen (Tylenol) 650 mg PO Q6H PRN PRN Reason: Pain Last Admin: 02/24/17 13:11 Dose: 650 mg Amlodipine Besylate (Norvasc) 5 mg PO DAILY [facility] Aspirin (Ecotrin) 325 mg PO DAILY [facility] Last Admin: 02/24/17 09:37 Dose: 325 mg Clonidine HCl (Catapres) 0.1 mg PO DAILY [facility] Hydralazine HCl (Apresoline) 10 mg IVPUSH Q6H PRN PRN Reason: Hypertension Last Admin: 02/24/17 20:41 Dose: 10 mg Hydrochlorothiazide (Hydrochlorothiazide) 25 mg PO DAILY [facility] Last Admin: 02/24/17 09:36 Dose: 25 mg Ceftriaxone Sodium 1 gm/ (Sodium Chloride) 100 mls @ 200 mls/hr IV Q24H [facility] Latanoprost (Xalatan 0.005% Ophth Soln) 0 ml EYEBOTH BEDTIME [facility] Last Admin: 02/24/17 20:28 Dose: 1 drop Magnesium Hydroxide (Milk Of Magnesia) 30 ml PO BID PRN PRN Reason: Constipation Magnesium Oxide (Magnesium Oxide) 400 mg PO ONETIME ONE Stop: 02/25/17 08:01 Magnesium Sulfate (Pharmacy To Dose - Magnesium Replacement) 1 dose .XX ASDIRECTED [facility] Metoprolol Tartrate (Lopressor) 50 mg PO Q12HR [facility] Miscellaneous Information (Remove Patch) 1 ea TRDERM DAILY [facility] Nicotine (Habitrol) 14 mg TRDERM DAILY [facility] Last Admin: 02/24/17 09:41 Dose: Not Given Ondansetron HCl (Zofran) 4 mg IVPUSH Q4H PRN PRN Reason: Nausea Last Admin: 02/24/17 23:51 Dose: 4 mg Potassium Chloride (Pharmacy To Dose - Potassium Replacement) 1 dose .XX ASDIRECTED [facility] Simvastatin (Zocor) 20 mg PO BEDTIME [facility] Sodium Chloride (Saline Flush) 10 ml FLUSH ASDIRECTED PRN PRN Reason: Keep Vein Open Last Admin: 02/23/17 12:59 Dose: 10 ml Discontinued Medications Aspirin (Aspirin) 324 mg PO ONETIME ONE Stop: 02/23/17 16:06 Last Admin: 02/23/17 16:50 Dose: 324 mg Aspirin (Aspirin) 81 mg PO BRK [facility] Atenolol (Tenormin) 100 mg PO DAILY [facility] Last Admin: 02/24/17 09:34 Dose: 100 mg Ceftriaxone Sodium (Rocephin) 1 gm IM Q24H [facility] Diphtheria/Tetanus/Acell Pertussis (Adacel) 0.5 ml IM .ONCE ONE Stop: 02/24/17 09:01 Ceftriaxone Sodium 1 gm/ (Sodium Chloride) 100 mls @ 200 mls/hr IV ONETIME ONE Stop: 02/24/17 19:18 Last Admin: 02/24/17 19:37 Dose: 200 mls/hr Sodium Chloride (Normal Saline) 1,000 mls @ 100 mls/hr IV ASDIRECTED [facility] Last Admin: 02/25/17 05:29 Dose: 100 mls/hr Lorazepam (Ativan) 0.5 mg IVPUSH ONETIME ONE Stop: 02/24/17 13:12 Last Admin: 02/24/17 13:15 Dose: 0.5 mg Pneumococcal 13-Valent Conj Vacc (Prevnar 13) 0.5 ml IM .ONCE ONE Stop: 02/24/17 08:08 Potassium Chloride (Klor-Con M20) 40 meq PO Q4H [facility] Stop: 02/24/17 21:01 Last Admin: 02/24/17 20:27 Dose: 40 meq Simvastatin (Zocor) 10 mg PO BEDTIME [facility] Last Admin: 02/24/17 20:28 Dose: 10 mg - Exam Quality Assessment: DVT Prophylaxis General: Alert, No Acute Distress HEENT: Mucous Membr. Moist/[place] Neck: Supple Lungs: Clear to Auscultation, Normal Respiratory Effort, Decreased Breath Sounds (bases) Cardiovascular: Regular Rate, Regular Rhythm GI/Abdominal Exam: Normal Bowel Sounds, Soft, Non-Tender (Female) Exam: Deferred Extremities: No Pedal Edema, Other (right forearm with large ecchymosis, minimal tenderness with palpation. Osteoarthritic changes to hands bilaterally. ) Peripheral Pulses: 1+: Dorsalis Pedis (L), Dorsalis Pedis (R) Neurological: Other (weakness). No: Normal Speech (dysarthria), Strength Equal Bilateral Psy/Mental Status: Alert - Problem List & Annotations (1) Cerebrovascular accident (CVA) SNOMED Code(s): 940681826 Code(s): I63.9 - CEREBRAL INFARCTION, UNSPECIFIED Status: Acute Priority : High Current Visit: Yes Qualifiers: CVA mechanism: unspecified Qualified Code(s): I63.9 - Cerebral infarction, unspecified (2) Malignant hypertension SNOMED Code(s): 35878705 Code(s): I10 - ESSENTIAL (PRIMARY) HYPERTENSION Status: Acute Priority: High Current Visit: Yes (3) HLD (hyperlipidemia) SNOMED Code(s): 66811878 Code(s): E78.5 - HYPERLIPIDEMIA, UNSPECIFIED Status: Chronic Priority: High Current Visit: Yes Qualifiers: Hyperlipidemia type: mixed hyperlipidemia Qualified Code(s): E78.2 - Mixed hyperlipidemia (4) Tobacco use disorder SNOMED Code(s): 067782407, 151392427 Code(s): F17.200 - NICOTINE DEPENDENCE, UNSPECIFIED, UNCOMPLICATED Status: Chronic Priority: High Current Visit: Yes (5) Contusion of right forearm SNOMED Code(s): 03825404 Code(s): S50.11XA - CONTUSION OF RIGHT FOREARM, INITIAL ENCOUNTER Status: Acute Priority: High Current Visit: Yes Qualifiers: Encounter type: initial encounter Qualified Code(s): S50.11XA - Contusion of right forearm, initial encounter (6) Fall SNOMED Code(s): 8981489, 454293458 Code(s): W19.XXXA - UNSPECIFIED FALL, INITIAL ENCOUNTER Status: Acute Priority: High Current Visit: Yes Qualifiers: Encounter type: initial encounter Qualified Code(s): W19.XXXA - Unspecified fall, initial encounter (7) Uterine prolapse SNOMED Code(s): 50412775 Code(s): N81.4 - UTEROVAGINAL PROLAPSE, UNSPECIFIED Status: Chronic Priority: Medium Current Visit: Yes - Problem List Review Problem List Initiated/Reviewed/Updated: Yes - My Orders Last 24 Hours: My Active Orders 02/24/17 09:32 Magnesium Hydroxide [Milk of Magnesia] 30 ml PO BID PRN 02/25/17 07:51 Communication Order [RC] ROUTINE 02/25/17 08:00 Metoprolol Tartrate [Lopressor] 50 mg PO Q12HR Simvastatin [Zocor] 20 mg PO BEDTIME cefTRIAXone [Rocephin] 1 gm Sodium Chloride 0.9% [Normal Saline] 100 ml IV Q24H 02/25/17 12:00 amLODIPine [Norvasc] 5 mg PO DAILY - Plan Plan:: Assessment/Plan: Acute: Acute CVA with right sided deficits - Risk Factors: Old CVA, HTN, HLD and Tobacco Dependence - She also presented with Malignant HTN--still with labile b/p's, will adjust BB and add norvasc at noon, order for nursing to use manual cuff at all times - Noninvasive testing ordered: MRI, 2D echo and Carotid Studies Malignant HTN - Acute on Chronic - Not fully controlled - Will optimize BP meds; as above - Resume home Clonidine regimen Dyslipidemia - Tri, Cho 219, LDL 135 and HDL 51 - Increase statin to 20 mg po daily - Start AHA diet once okayed by ZONING ADMINISTRATOR Considerably Elevated B12 and Folate - Patient take OTC supplements per family UTI Positive E. coli - Uncomplicated - UA Cx: ecoli- pansensitive - Start 1 gram IV Rocephin Mild Renal Insufficiency - GFR > 60---> 47 - 2/2 poor fluid intake per family - Taking adequate PO fluids, can DC IVF now Hypokalemia--resolved; cont to monitor - 2/2 Inadequate Intake - Pharmacy to replete and monitor Uterine Prolapse Stage 4 - Acute on Chronic - I was able to easily reduced it yesterday - Dock Operator consult - Spoke with Dr. Menezes today, he will see her today. Chronic: Impaired Vision HTN HLD Tobacco Dependence, refused nicotine patch Urinary Incontinence Severe OA Hx/o Uterine Prolapse Plan: She is fairly stable Continue CVA protocol Aspiration/Fall Precaution Swallow eval bedside, followed by formal by SP CM/OT/PT consult DVT/GI prophylaxis Recommend SNF/Rehab due to residual deficits--family and patient agreeable, SW arranging placement. Will update family once we get result of MRI, 2D echo and Carotid Studies Patient is DNR/DNI
[2017-02-25] MEDS ORDERED: Magnesium Oxide 400 MG Tab PO ONE (08:00)
[2017-02-25] MEDS ORDERED: cefTRIAXone 1 GM Vial IM SCH (09:00)
[2017-02-25] MEDS: cloNIDine 0.1 MG Tab PO SCH (11:06)
[2017-02-25] MEDS: Aspirin 325 MG Tab.EC PO SCH (11:07)
[2017-02-25] MEDS: Hydrochlorothiazide 25 MG Tab PO SCH (11:07)
[2017-02-25] MEDS: Metoprolol Tartrate 50 MG Tab PO SCH ×2 (11:08→21:39)
[2017-02-25] MEDS: Nicotine 14 MG/24 Hr Patch TRDERM SCH (11:10)
[2017-02-25] MEDS: amLODIPine 5 MG Tab PO SCH (11:59)
--- NOTE | 2017-02-25 12:55 | PCM.CONS ---
H&P History of Present Illness - General Date of Service: 02/25/17 Admit Problem/Dx: Admission Diagnosis/Problem Admission Diagnosis/Problem Ischemic stroke Kimberly is seen this morning. She is resting in the chair, would like to go to bed to rest. Transfer with two assist to bed. She is feeling better. Speech is improving. Strength is slowly improving. She is making strides with therapies. She denies pain, SOB, CP, ZAVALA, back pain, abd pain, pain to vagina/pelvis with regards to uterine prolapse. No diarrhea. She did have vomiting last evening after taking pills, specifically potassium supplement. No further n/v this morning, did eat breakfast, tolerated well. Long discussion with family this morning re: labs, VS, progress with PT. Spoke with them about findings of uterine prolapse yesterday. Family was unaware she has had this, she has never spoken of this to them. Reviewed with them that this may be cause of or contributing to UTI, likely she may have chronic UTI or low grade UTI all the time with this significant prolapse. Family reports she has had urinary frequency, up to every 15 minutes for years. Discussed tx options for this and consult with CORRECTIONAL SUPPLY SUPERVISOR. Family wishes to have consult as inpatient. Call was placed to Dr. Menezes, reviewed case with Dr. Menezes today. He will see patient at some point today in evaluation. Source of Information: Patient History Limitations: Reports: No Limitations - History of Present Illness Initial Comments - Free Text/Narative: 86-year-old with history of prolapse of the uterus bladder and rectum out of the vagina M (cystocele rectocele and uterine prolapse) no vaginal bleeding. Patient was admitted to the hospital because of recent stroke and was noted at that time to have the above. Consult was requested. Patient is able to empty her bladder. She is presently being treated for urinary tract infection. Patient is not a "good" historian because of her recent stroke, but she is able to verbalize and answer our questions. Onset of Symptoms: Reports: Unknown/Unsure Improves with: Reports: None Worsens with: Reports: None Associated Symptoms: Reports: No Other Symptoms Right Arm Pain Score (Numeric/FACES): 5 back Pain Score (Numeric/FACES): 0 - Related Data Allergies/Adverse Reactions: Allergies Allergy/AdvReac Type Severity Reaction Status Date / Time No Known Allergies Allergy Verified 02/23/17 12:30 Home Medications: Home Meds Aspirin 81 mg PO BRK 02/23/17 [History] Bisoprolol/Hydrochlorothiazide [Ziac 10-6.25 MG] 1 tab PO DAILY 02/23/17 [ History] Latanoprost [Xalatan 0.005% Ophth Soln] 2.5 ml EYEBOTH BEDTIME 02/23/17 [History ] Multivitamin with Minerals [Multiple Vitamin] 1 cap PO DAILY 02/23/17 [History] cloNIDine [Catapres] 0.1 mg PO DAILY 02/23/17 [History] Horse Randolph Seed [Horse Randolph] 1 tab PO ACBREAKFAST 02/24/17 [History] Past Medical History HEENT History: Reports: Impaired Vision Other HEENT History: wears corrective lenses Cardiovascular History: Reports: High Cholesterol, Hypertension Genitourinary History: Reports: Urinary Incontinence COLLECTION OFFICER History: Reports: Social & Family History - Tobacco Use Smoking Status *Q: Current Every Day Smoker Years of Tobacco use: 55 Packs/Tins Daily: 1.5 Used Tobacco, but Quit: No Second Hand Smoke Exposure: No - Caffeine Use Caffeine Use: Reports: Coffee Other Caffeine Use: 1 cup a day - Recreational Drug Use Recreational Drug Use: No H&P Review of Systems - Review of Systems: Review Of Systems: See Below Genitourinary: Reports: Other (Although no symptoms patient is presently being treated for urinary tract infection.) Exam - Exam Exam: See Below - Vital Signs Vital Signs: Last Vital Signs Temp 98.0 F 02/25/17 08:40 Pulse 62 02/25/17 11:08 Resp 20 02/25/17 08:40 BP 140/52 L 02/25/17 11:59 Pulse Ox 97 02/25/17 08:40 Weight: 98 lb 12.8 oz - Exam (Female) Exam: Other (Atrophic vulvovaginitis and second-degree cystocele and rectocele with prolapse of the uterus but no fourth degree cystocele or rectocele or complete uterine prolapse able to be demonstrated on exam in bed. Patient will return to clinic for follow-up after rehabilitation and father examination evaluation will be performed then. No uterine abnormalities palpated no adnexal masses palpated.) - Patient Data Lab Results Last 24 hrs: Laboratory Results - last 24 hr 02/25/17 02/25/17 Range/Units 06:35 06:35 WBC 20.01 H (3.98-10.04) K/mm3 RBC 4.65 (3.98-5.22) M/mm3 Hgb 14.7 (11.2-15.7) gm/L Hct 43.8 (34.1-44.9) % MCV 94.2 (79.4-94.8) fl MCH 31.6 (25.6-32.2) pg MCHC 33.6 (32.2-35.5) g/dl RDW Std Deviation 48.3 H (36.4-46.3) fL Plt Count 321 (182-369) K/mm3 MPV 10.0 (9.4-12.3) fl Neut % (Auto) 85.0 H (34.0-71.1) % Lymph % (Auto) 9.4 L (19.3-51.7) % [place] % (Auto) 5.2 (4.7-12.5) % Eos % (Auto) 0 L (0.7-5.8) Baso % (Auto) 0.1 (0.1-1.2) % Neut # (Auto) 16.99 H (1.56-6.13) K/mm3 Lymph # (Auto) 1.88 (1.18-3.74) K/mm3 [place] # (Auto) 1.05 H (0.24-0.36) K/mm3 Eos # (Auto) 0.01 L (0.04-0.36) K/mm3 Baso # (Auto) 0.02 (0.01-0.08) K/mm3 Manual Slide Review Abnormal smear Sodium 141 (136-145) mEq/L Potassium 4.4 (3.5-5.1) mEq/L Chloride 109 H (98-107) mEq/L Carbon Dioxide 24 (21-32) mEq/L Anion Gap 12.4 (5-15) BUN 28 H (7-18) mg/dL Creatinine 0.7 (0.55-1.02) mg/dL Est Cr Clr Drug Dosing 42.32 mL/min Estimated GFR (MDRD) > 60 (>60) mL/min BUN/Creatinine Ratio 40.0 H (14-18) Glucose 125 H (83-115) mg/dL Calcium 8.8 (8.5-10.1) mg/dL Magnesium 1.8 (1.8-2.4) mg/dl C-Reactive Protein 4.4 H* (<1.0) mg/dL Result Diagrams: 02/25/17 06:35 02/25/17 06:35 Consult PN Assessment/Plan (1) Incomplete uterine prolapse SNOMED Code(s): 684087118 Code(s): N81.2 - INCOMPLETE UTEROVAGINAL PROLAPSE Current Visit: Yes (2) Cystocele with rectocele SNOMED Code(s): 704851936 Code(s): N81.10 - CYSTOCELE, UNSPECIFIED; N81.6 - RECTOCELE Current Visit: Yes Problem List Initiated/Reviewed/Updated: No Plan: Patient is to go to rehabilitation for stroke rehabilitation Patient to see me in the clinic in 6-8 weeks.
[2017-02-25] MEDS: cefTRIAXone 1 GM in Sodium Chloride 0.9% 100 ML IV SCH (18:34)
[2017-02-25] MEDS: Simvastatin 20 MG Tab PO SCH (21:39)
[2017-02-25] MEDS: Latanoprost 0.005% Ophth Soln 2.5 ML Bottle EYEBOTH SCH (21:42)
[2017-02-26] MEDS: Metoprolol Tartrate 50 MG Tab PO SCH ×2 (09:11→21:24)
[2017-02-26] MEDS: Hydrochlorothiazide 25 MG Tab PO SCH (09:11)
[2017-02-26] MEDS: Aspirin 325 MG Tab.EC PO SCH (09:11)
[2017-02-26] MEDS: amLODIPine 5 MG Tab PO SCH (09:12)
[2017-02-26] MEDS: Nicotine 14 MG/24 Hr Patch TRDERM SCH (09:12)
[2017-02-26] MEDS: cloNIDine 0.1 MG Tab PO SCH ×2 (09:12→09:27)
--- NOTE | 2017-02-26 11:59 | PCM.PN ---
- General Info Date of Service: 02/26/17 Admission Dx/Problem (Free Text): Admission Diagnosis/Problem Admission Diagnosis/Problem Ischemic stroke Kimberly is seen this morning, resting in bed. Slept well. No further nausea last night. B/P improved not hypertensive overnight. She is doing well, progressing with therapy. Plans for DC to acute rehab today vs tomorrow. Functional Status: Reports: Pain Controlled (denies pain), Tolerating Diet, Ambulating, Urinating. Denies: New Symptoms - Review of Systems General: Reports: No Symptoms, Weakness (rt sided; improving day-to-day) HEENT: Reports: No Symptoms. Denies: Headaches Pulmonary: Reports: No Symptoms. Denies: Shortness of Breath, Cough Cardiovascular: Reports: No Symptoms. Denies: Chest Pain, Palpitations Gastrointestinal: Reports: No Symptoms. Denies: Abdominal Pain Genitourinary: Reports: No Symptoms. Denies: Dysuria Musculoskeletal: Reports: No Symptoms Skin: Reports: No Symptoms Neurological: Reports: Trouble Speaking (dysarthria improving), Difficulty Walking (rt sided weakness), Weakness (rt sided) Psychiatric: Reports: No Symptoms - Patient Data Vitals - Most Recent: Last Vital Signs Temp 97.5 F 02/26/17 08:27 Pulse 65 02/26/17 09:11 Resp 14 02/26/17 08:29 BP 115/51 L 02/26/17 09:27 Pulse Ox 99 02/26/17 08:29 Weight - Most Recent: 101 lb I&O - Last 24 Hours: Intake & Output 02/25/17 02/26/17 02/26/17 22:59 06:59 14:59 Intake Total 520 100 120 Output Total 20 150 Balance 500 -50 120 Lab Results Last 24 Hours: Laboratory Results - last 24 hr 02/26/17 02/26/17 Range/Units 05:54 05:54 WBC 14.18 H (3.98-10.04) K/mm3 RBC 4.18 (3.98-5.22) M/mm3 Hgb 13.3 (11.2-15.7) gm/L Hct 39.7 (34.1-44.9) % MCV 95.0 H (79.4-94.8) fl MCH 31.8 (25.6-32.2) pg MCHC 33.5 (32.2-35.5) g/dl RDW Std Deviation 49.0 H (36.4-46.3) fL Plt Count 309 (182-369) K/mm3 MPV 10.8 (9.4-12.3) fl Neut % (Auto) 74.0 H (34.0-71.1) % Lymph % (Auto) 17.5 L (19.3-51.7) % [place] % (Auto) 6.8 (4.7-12.5) % Eos % (Auto) 1.3 (0.7-5.8) Baso % (Auto) 0.4 (0.1-1.2) % Neut # (Auto) 10.49 H (1.56-6.13) K/mm3 Lymph # (Auto) 2.48 (1.18-3.74) K/mm3 [place] # (Auto) 0.96 H (0.24-0.36) K/mm3 Eos # (Auto) 0.19 (0.04-0.36) K/mm3 Baso # (Auto) 0.06 (0.01-0.08) K/mm3 Sodium 140 (136-145) mEq/L Potassium 3.6 (3.5-5.1) mEq/L Chloride 105 (98-107) mEq/L Carbon Dioxide 26 (21-32) mEq/L Anion Gap 12.6 (5-15) BUN 21 H (7-18) mg/dL Creatinine 0.6 (0.55-1.02) mg/dL Est Cr Clr Drug Dosing 50.48 mL/min Estimated GFR (MDRD) > 60 (>60) mL/min BUN/Creatinine Ratio 35.0 H (14-18) Glucose 97 (83-115) mg/dL Calcium 8.8 (8.5-10.1) mg/dL Magnesium 1.8 (1.8-2.4) mg/dl C-Reactive Protein 6.3 H* (<1.0) mg/dL Med Orders - Current: Current Medications Acetaminophen (Tylenol) 650 mg PO Q6H PRN PRN Reason: Pain Last Admin: 02/24/17 13:11 Dose: 650 mg Amlodipine Besylate (Norvasc) 5 mg PO DAILY [facility] Last Admin: 02/26/17 09:12 Dose: 5 mg Aspirin (Ecotrin) 325 mg PO DAILY [facility] Last Admin: 02/26/17 09:11 Dose: 325 mg Clonidine HCl (Catapres) 0.1 mg PO BEDTIME [facility] Hydralazine HCl (Apresoline) 10 mg IVPUSH Q6H PRN PRN Reason: Hypertension Last Admin: 02/24/17 20:41 Dose: 10 mg Hydrochlorothiazide (Hydrochlorothiazide) 25 mg PO DAILY [facility] Last Admin: 02/26/17 09:11 Dose: 25 mg Ceftriaxone Sodium 1 gm/ (Sodium Chloride) 100 mls @ 200 mls/hr IV Q24H [facility] Last Admin: 02/25/17 18:34 Dose: 200 mls/hr Latanoprost (Xalatan 0.005% Oph Soln) 0 ml EYEBOTH BEDTIME [facility] Last Admin: 02/25/17 21:42 Dose: 1 drop Magnesium Hydroxide (Milk Of Magnesia) 30 ml PO BID PRN PRN Reason: Constipation Last Admin: 02/26/17 05:56 Dose: 30 ml Magnesium Sulfate (Pharmacy To Dose - Magnesium Replacement) 1 dose .XX ASDIRECTED [facility] Metoprolol Tartrate (Lopressor) 50 mg PO Q12H [facility] Last Admin: 02/26/17 09:11 Dose: 50 mg Miscellaneous Information (Remove Patch) 1 ea TRDERM DAILY [facility] Last Admin: 02/26/17 09:27 Dose: 1 ea Nicotine (Habitrol) 14 mg TRDERM DAILY [facility] Last Admin: 02/26/17 09:12 Dose: 14 mg Ondansetron HCl (Zofran) 4 mg IVPUSH Q4H PRN PRN Reason: Nausea Last Admin: 02/24/17 23:51 Dose: 4 mg Potassium Chloride (Pharmacy To Dose - Potassium Replacement) 1 dose .XX ASDIRECTED [facility] Simvastatin (Zocor) 20 mg PO BEDTIME [facility] Last Admin: 02/25/17 21:39 Dose: 20 mg Sodium Chloride (Saline Flush) 10 ml FLUSH ASDIRECTED PRN PRN Reason: Keep Vein Open Last Admin: 02/23/17 12:59 Dose: 10 ml Discontinued Medications Aspirin (Aspirin) 324 mg PO ONETIME ONE Stop: 02/23/17 16:06 Last Admin: 02/23/17 16:50 Dose: 324 mg Aspirin (Aspirin) 81 mg PO BRK [facility] Atenolol (Tenormin) 100 mg PO DAILY [facility] Last Admin: 02/24/17 09:34 Dose: 100 mg Ceftriaxone Sodium (Rocephin) 1 gm IM Q24H [facility] Clonidine HCl (Catapres) 0.1 mg PO DAILY [facility] Last Admin: 02/26/17 09:27 Dose: Not Given Diphtheria/Tetanus/Acell Pertussis (Adacel) 0.5 ml IM .ONCE ONE Stop: 02/24/17 09:01 Ceftriaxone Sodium 1 gm/ (Sodium Chloride) 100 mls @ 200 mls/hr IV ONETIME ONE Stop: 02/24/17 19:18 Last Admin: 02/24/17 19:37 Dose: 200 mls/hr Sodium Chloride (Normal Saline) 1,000 mls @ 100 mls/hr IV ASDIRECTED [facility] Last Admin: 02/25/17 05:29 Dose: 100 mls/hr Lorazepam (Ativan) 0.5 mg IVPUSH ONETIME ONE Stop: 02/24/17 13:12 Last Admin: 02/24/17 13:15 Dose: 0.5 mg Magnesium Oxide (Magnesium Oxide) 400 mg PO ONETIME ONE Stop: 02/25/17 08:01 Last Admin: 02/25/17 11:06 Dose: 400 mg Pneumococcal 13-Valent Conj Vacc (Prevnar 13) 0.5 ml IM .ONCE ONE Stop: 02/24/17 08:08 Potassium Chloride (Klor-Con M20) 40 meq PO Q4H [facility] Stop: 02/24/17 21:01 Last Admin: 02/24/17 20:27 Dose: 40 meq Simvastatin (Zocor) 10 mg PO BEDTIME [facility] Last Admin: 02/24/17 20:28 Dose: 10 mg - Exam Quality Assessment: DVT Prophylaxis General: Alert, Oriented, Cooperative, No Acute Distress HEENT: Pupils Equal, EOMI, Mucous Membr. Moist/[place] Neck: Supple Lungs: Clear to Auscultation, Normal Respiratory Effort, Decreased Breath Sounds (bases) Cardiovascular: Regular Rate, Regular Rhythm, No Murmurs GI/Abdominal Exam: Normal Bowel Sounds, Soft, Non-Tender (Female) Exam: Deferred Back Exam: Normal Inspection Extremities: Normal Inspection, No Pedal Edema Peripheral Pulses: 1+: Dorsalis Pedis (L), Dorsalis Pedis (R) Skin: Warm, Dry, Intact Neurological: No: Strength Equal Bilateral (rt sided weakness/rt arm flacidity is improving slowly) Psy/Mental Status: Alert, Normal Affect, Normal Mood - Problem List & Annotations (1) Cerebrovascular accident (CVA) SNOMED Code(s): 649993528 Code(s): I63.9 - CEREBRAL INFARCTION, UNSPECIFIED Status: Acute Priority : High Current Visit: Yes Qualifiers: CVA mechanism: unspecified Qualified Code(s): I63.9 - Cerebral infarction, unspecified (2) Malignant hypertension SNOMED Code(s): 25874593 Code(s): I10 - ESSENTIAL (PRIMARY) HYPERTENSION Status: Resolved Priority : High Current Visit: Yes (3) HLD (hyperlipidemia) SNOMED Code(s): 87576270 Code(s): E78.5 - HYPERLIPIDEMIA, UNSPECIFIED Status: Chronic Priority: High Current Visit: Yes Qualifiers: Hyperlipidemia type: mixed hyperlipidemia Qualified Code(s): E78.2 - Mixed hyperlipidemia (4) Tobacco use disorder SNOMED Code(s): 605534932, 016949686 Code(s): F17.200 - NICOTINE DEPENDENCE, UNSPECIFIED, UNCOMPLICATED Status: Chronic Priority: High Current Visit: Yes (5) Contusion of right forearm SNOMED Code(s): 71774720 Code(s): S50.11XA - CONTUSION OF RIGHT FOREARM, INITIAL ENCOUNTER Status: Acute Priority: High Current Visit: Yes Qualifiers: Encounter type: initial encounter Qualified Code(s): S50.11XA - Contusion of right forearm, initial encounter (6) Fall SNOMED Code(s): 1503205, 221624449 Code(s): W19.XXXA - UNSPECIFIED FALL, INITIAL ENCOUNTER Status: Acute Priority: High Current Visit: Yes Qualifiers: Encounter type: initial encounter Qualified Code(s): W19.XXXA - Unspecified fall, initial encounter (7) Uterine prolapse SNOMED Code(s): 02649454 Code(s): N81.4 - UTEROVAGINAL PROLAPSE, UNSPECIFIED Status: Chronic Priority: Medium Current Visit: Yes - Problem List Review Problem List Initiated/Reviewed/Updated: Yes - My Orders Last 24 Hours: My Active Orders 02/25/17 11:14 Consult to Physician [CONS] Routine 02/25/17 11:15 Notify Provider Consults [RC] ASDIRECTED 02/25/17 12:00 amLODIPine [Norvasc] 5 mg PO DAILY 02/25/17 19:00 cefTRIAXone [Rocephin] 1 gm Sodium Chloride 0.9% [Normal Saline] 100 ml IV Q24H 02/25/17 21:00 Simvastatin [Zocor] 20 mg PO BEDTIME - Plan Plan:: Assessment/Plan: Acute: Acute CVA with right sided deficits - Risk Factors: Old CVA, HTN, HLD and Tobacco Dependence - She also presented with Malignant HTN--B/P's are much improved. - Noninvasive testing ordered: MRI, 2D echo and Carotid Studies- results discussed with family Malignant HTN---resolved - Acute on Chronic - Not fully controlled - Will optimize BP meds; as above - Resume home Clonidine regimen Dyslipidemia-chronic - Tri, Cho 219, LDL 135 and HDL 51 - Increase statin to 20 mg po daily - Start AHA diet once okayed by INTERNAL MEDICINE PHYSICIAN ASSISTANT Considerably Elevated B12 and Folate - Patient take OTC supplements per family UTI Positive E. coli - Uncomplicated - UA Cx: ecoli- pansensitive - Start 1 gram IV Rocephin--can be dc'd on PO abx Mild Renal Insufficiency--improved - GFR > 60---> 47 - 2/2 poor fluid intake per family - Taking adequate PO fluids, can DC IVF now Hypokalemia--resolved; cont to monitor - 2/2 Inadequate Intake - Pharmacy to replete and monitor Uterine Prolapse, incomplete - Acute on Chronic - I was able to easily reduced it - [employer] consult - Spoke with Dr. Menezes; he did consult; recommends outpatient f/ up in clinic after acute rehab stay. Chronic: Impaired Vision HTN HLD Tobacco Dependence, refused nicotine patch Urinary Incontinence Severe OA Hx/o Uterine Prolapse Plan: She is fairly stable Continue CVA protocol Aspiration/Fall Precaution Swallow eval bedside, followed by formal by SP CM/OT/PT consult DVT/GI prophylaxis Recommend SNF/Rehab due to residual deficits--family and patient agreeable, SW arranging placement- likely for tomorrow am. Patient is DNR/DNI
--- NOTE | 2017-02-26 14:22 | CR ---
Chest: 2 views of the chest were obtained. Comparison: No prior chest x-ray. Heart is mildly enlarged. Tortuous thoracic aorta is seen. Calcification is noted within the left breast causing some increased density on the lateral view. Lung markings are mildly increased which are most likely are chronic. No acute infiltrates are suspected. Bony structures are osteopenic. Scattered degenerative change is noted within the spine. Impression: 1. Findings which are felt to be incidental. Nothing acute is definitely appreciated. Diagnostic code #2
[2017-02-26] MEDS: cefTRIAXone 1 GM in Sodium Chloride 0.9% 100 ML IV SCH (18:26)
[2017-02-26] MEDS ORDERED: cloNIDine 0.1 MG Tab PO SCH (21:00)
[2017-02-26] MEDS: Latanoprost 0.005% Ophth Soln 2.5 ML Bottle EYEBOTH SCH (21:24)
[2017-02-26] MEDS: Simvastatin 20 MG Tab PO SCH (21:25)
[2017-02-26] MEDS: Acetaminophen 325 MG Tab PO PRN (21:26)
--- NOTE | 2017-02-27 06:30 | PCM.DCSUM1 ---
Discharge Summary - Hospital Course Free Text/Narrative:: 86 year old female who was found in her home on the floor by her family, duration is unknown. Family summoned help with ambulance who brought her to ED. Her last conatct with family was Thursday morning, 02/21/17. She could not get off the floor without assistance. The patient is weak on the right side, has difficulty speaking. She denied change in vision, headache, diaphoresis, CP , dizziness or SOB. There is no previous hx of TIA/CVA per initial reports. CT scan of the brain done in ED is negative for hemorrhagic CVA or other acute findings. The family declined transfer to [place] or [place] for acute neurologic changes. Hospitalist service is consulted for admission for r/o CVA. 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 Carotid US obtained with right carotid plaque at 50-79%, at upper limits of normal, left at >50% plaque. Echocardogram was with normal EF, normal or no valvular concerns. Xray of right forearm was obtained in ED due to hematoma and ecchymosis s/p fall was negative for acute fracture. CXR done later on in her stay was with chronic changes, nothing acute. She was on and off of oxygen for mild hypoxia throughout her stay. She likely has chronic lung disease due to 55 pack year hx of smoking. CHILD AND FAMILY SERVICES WORKER, Dr. Menezes was consulted for large uterine prolapse noted while patient was on shower chair. Patient states has had this for many many years, since her last child (who is 61 years old), does not cause pain/discomfort. Dr. Menezes found her to have incomplete uterine prolapse, rectocele/cystocele with recommendations for f/up as outpatient for further treatment option discussion; patient declines any surgical intervention. She did have AUTI during her stay, ecoli on UC which was pansensitive, treated with Rocephin IV. She had labile b/p's initially during her stay, improved with adjustments in medications and stable at time of discharge. She worked well with PT/OT/ST with great strides and improvements noted. She is in agreement as is family, per therapies recommendation for inpatient rehabilitation stay. She will be discharged with family today to transfer to [place]. - Discharge Data Discharge Date: 02/27/17 (admit date 02/23/17) Discharge Disposition: DC/Tfer to Inpt Rehab Fac 62 Condition: Good - Discharge Diagnosis/Problem(s) (1) Cerebrovascular accident (CVA) SNOMED Code(s): 255668857 ICD Code: I63.9 - CEREBRAL INFARCTION, UNSPECIFIED Status: Acute Priority : High Qualifiers: CVA mechanism: unspecified Qualified Code(s): I63.9 - Cerebral infarction, unspecified (2) Malignant hypertension SNOMED Code(s): 99218139 ICD Code: I10 - ESSENTIAL (PRIMARY) HYPERTENSION Status: Resolved Priority: High (3) HLD (hyperlipidemia) SNOMED Code(s): 58441812 ICD Code: E78.5 - HYPERLIPIDEMIA, UNSPECIFIED Status: Chronic Priority: High Qualifiers: Hyperlipidemia type: mixed hyperlipidemia Qualified Code(s): E78.2 - Mixed hyperlipidemia (4) Tobacco use disorder SNOMED Code(s): 903600368, 874537358 ICD Code: F17.200 - NICOTINE DEPENDENCE, UNSPECIFIED, UNCOMPLICATED Status : Chronic Priority: High (5) Contusion of right forearm SNOMED Code(s): 40575679 ICD Code: S50.11XA - CONTUSION OF RIGHT FOREARM, INITIAL ENCOUNTER Status: Acute Priority: High Qualifiers: Encounter type: initial encounter Qualified Code(s): S50.11XA - Contusion of right forearm, initial encounter (6) Fall SNOMED Code(s): 3216363, 291081702 ICD Code: W19.XXXA - UNSPECIFIED FALL, INITIAL ENCOUNTER Status: Acute Priority: High Qualifiers: Encounter type: initial encounter Qualified Code(s): W19.XXXA - Unspecified fall, initial encounter (7) Uterine prolapse SNOMED Code(s): 22300440 ICD Code: N81.4 - UTEROVAGINAL PROLAPSE, UNSPECIFIED Status: Chronic Priority: Medium - Patient Summary/Data Operative Procedure(s) Performed: None Complications: None Consults: Consultations 02/23/17 17:14 Consult to Physical Therapy [PT Evaluation and Treatment] [CONS] Routine 02/23/17 17:15 Consult to Occupational Therapy [OT Evaluation and Treatment] [CONS] Routine 02/24/17 07:49 HULL INSPECTOR Evaluation and Treatment [CONS] Routine 02/25/17 11:14 Consult to Physician [CONS] Routine Labs Pending at D/C: None Recommended Follow-up Testing/Procedures: Physical , occupational & speech therapy to eval & treat Follow up with Dr. Cee, PCP with [facility] in [place] when released from Acute Rehab stay in [place] Follow up with Dr. Menezes, CHILD AND FAMILY SERVICES WORKER for uterine prolapse has been scheduled for 03/02--if not yet discharged from rehab, this appointment can be rescheduled; please call to reschedule-- [phone]. Note to nursing at Acute Care Rehab: when patient sits on toilet she may have significant uterine prolapse, which reduces easily. This has been evaluated by CHILD AND FAMILY SERVICES WORKER, she has appointment as outpatient for further treatment once discharged from rehab. This has been a chronic problem for her for many years. Planned Operative Procedure(s) after DC: None Hospital Course: As above - Patient Instructions Diet: Heart Healthy Diet, Drink 8-10+ Glasses/Day Activity: As Tolerated (PT/OT/ST to continue) Activity, Other: warm compresses to contusion/bruising to right forearm as needed Driving: Do Not Drive Showering/Bathing: May Shower Notify Provider of: Fever, Increased Pain, Nausea and/or Vomiting - Discharge Plan Prescriptions/Med Rec: amLODIPine [Norvasc] 5 mg PO DAILY #30 tablet Aspirin [Ecotrin] 325 mg PO DAILY #30 tab.ec Cephalexin [Keflex] 500 mg PO QID #28 cap Metoprolol Tartrate [Lopressor] 50 mg PO Q12H #60 tablet Nicotine [Habitrol] 14 mg TRDERM DAILY #30 patch Simvastatin [Zocor] 20 mg PO BEDTIME #30 tablet Home Medications: Home Meds Bisoprolol/Hydrochlorothiazide [Ziac 10-6.25 MG] 1 tab PO DAILY 02/23/17 [ History] Latanoprost [Xalatan 0.005% Ophth Soln] 2.5 ml EYEBOTH BEDTIME 02/23/17 [History ] Multivitamin with Minerals [Multiple Vitamin] 1 cap PO DAILY 02/23/17 [History] cloNIDine [Catapres] 0.1 mg PO DAILY 02/23/17 [History] Acetaminophen [Tylenol] 650 mg PO Q6H PRN tablet 02/27/17 [Rx] Aspirin [Ecotrin] 325 mg PO DAILY #30 tab.ec 02/27/17 [Rx] Cephalexin [Keflex] 500 mg PO QID #28 cap 02/27/17 [Rx] Magnesium Hydroxide [Milk of Magnesia] 30 ml PO BID PRN cup 02/27/17 [Rx] Metoprolol Tartrate [Lopressor] 50 mg PO Q12H #60 tablet 02/27/17 [Rx] Nicotine [Habitrol] 14 mg TRDERM DAILY #30 patch 02/27/17 [Rx] Simvastatin [Zocor] 20 mg PO BEDTIME #30 tablet 02/27/17 [Rx] amLODIPine [Norvasc] 5 mg PO DAILY #30 tablet 02/27/17 [Rx] Patient Handouts: Smoking Hazards, Stroke Prevention, [id number], Ischemic Stroke Treated Without Warfarin, [id number], Smoking Cessation, Tips for Success, High Cholesterol Forms: ED Department Discharge Referrals: Stuart Menezes MD [Physician] - 03/02/17 2:00 pm (Gynecology appt for prolapsed uterus.) Brendan Cee MD [Primary Care Provider] - - Discharge Summary/Plan Comment DC Time >30 min.: Yes (40 min) - General Info Date of Service: 02/27/17 Admission Dx/Problem (Free Text: Admission Diagnosis/Problem Admission Diagnosis/Problem Ischemic stroke Kimberly is seen this morning, resting in bed. Slept well. No concerns overnight, no concerns from nursing. Plans for DC to inpatient rehab in [place] this morning with daughter to transport. She is anxious for this transition and to get going with more therapies to continue on the road to recovery. Functional Status: Reports: Pain Controlled, Tolerating Diet, Ambulating (with assist; platform walker- progressing well with therapies), Urinating. Denies: New Symptoms - Review of Systems General: Reports: Weakness (rt sided) HEENT: Reports: No Symptoms. Denies: Headaches Pulmonary: Reports: No Symptoms. Denies: Shortness of Breath, Cough Cardiovascular: Reports: No Symptoms. Denies: Chest Pain, Palpitations Gastrointestinal: Reports: No Symptoms. Denies: Abdominal Pain Musculoskeletal: Reports: No Symptoms Neurological: Reports: Trouble Speaking (dysarthria; slowly improving), Weakness (rt sided) Psychiatric: Reports: No Symptoms - Patient Data Vitals - Most Recent: Last Vital Signs Temp 98.1 F 02/27/17 02:46 Pulse 59 L 02/27/17 02:46 Resp 16 02/27/17 02:46 BP 146/48 H 02/27/17 02:46 Pulse Ox 91 L 02/27/17 02:46 Weight - Most Recent: 100 lb 1.6 oz I&O - Last 24 hours: Intake & Output 02/26/17 02/26/17 02/27/17 14:59 22:59 06:59 Intake Total 120 400 200 Output Total 250 300 Balance 120 150 -100 Lab Results - Last 24 hrs: Laboratory Results - last 24 hr 02/26/17 02/26/17 Range/Units 05:54 05:54 WBC 14.18 H (3.98-10.04) K/mm3 RBC 4.18 (3.98-5.22) M/mm3 Hgb 13.3 (11.2-15.7) gm/L Hct 39.7 (34.1-44.9) % MCV 95.0 H (79.4-94.8) fl MCH 31.8 (25.6-32.2) pg MCHC 33.5 (32.2-35.5) g/dl RDW Std Deviation 49.0 H (36.4-46.3) fL Plt Count 309 (182-369) K/mm3 MPV 10.8 (9.4-12.3) fl Neut % (Auto) 74.0 H (34.0-71.1) % Lymph % (Auto) 17.5 L (19.3-51.7) % Mobile % (Auto) 6.8 (4.7-12.5) % Eos % (Auto) 1.3 (0.7-5.8) Baso % (Auto) 0.4 (0.1-1.2) % Neut # (Auto) 10.49 H (1.56-6.13) K/mm3 Lymph # (Auto) 2.48 (1.18-3.74) K/mm3 Mobile # (Auto) 0.96 H (0.24-0.36) K/mm3 Eos # (Auto) 0.19 (0.04-0.36) K/mm3 Baso # (Auto) 0.06 (0.01-0.08) K/mm3 Sodium 140 (136-145) mEq/L Potassium 3.6 (3.5-5.1) mEq/L Chloride 105 (98-107) mEq/L Carbon Dioxide 26 (21-32) mEq/L Anion Gap 12.6 (5-15) BUN 21 H (7-18) mg/dL Creatinine 0.6 (0.55-1.02) mg/dL Est Cr Clr Drug Dosing 50.48 mL/min Estimated GFR (MDRD) > 60 (>60) mL/min BUN/Creatinine Ratio 35.0 H (14-18) Glucose 97 (83-115) mg/dL Calcium 8.8 (8.5-10.1) mg/dL Magnesium 1.8 (1.8-2.4) mg/dl C-Reactive Protein 6.3 H* (<1.0) mg/dL Med Orders - Current: Current Medications Acetaminophen (Tylenol) 650 mg PO Q6H PRN PRN Reason: Pain Last Admin: 02/26/17 21:26 Dose: 650 mg Amlodipine Besylate (Norvasc) 5 mg PO DAILY [facility] Last Admin: 02/26/17 09:12 Dose: 5 mg Aspirin (Ecotrin) 325 mg PO DAILY [facility] Last Admin: 02/26/17 09:11 Dose: 325 mg Clonidine HCl (Catapres) 0.1 mg PO BEDTIME [facility] Last Admin: 02/26/17 21:25 Dose: 0.1 mg Hydralazine HCl (Apresoline) 10 mg IVPUSH Q6H PRN PRN Reason: Hypertension Last Admin: 02/24/17 20:41 Dose: 10 mg Hydrochlorothiazide (Hydrochlorothiazide) 25 mg PO DAILY [facility] Last Admin: 02/26/17 09:11 Dose: 25 mg Ceftriaxone Sodium 1 gm/ (Sodium Chloride) 100 mls @ 200 mls/hr IV Q24H [facility] Last Admin: 02/26/17 18:26 Dose: 200 mls/hr Latanoprost (Xalatan 0.005% Ophth Soln) 0 ml EYEBOTH BEDTIME [facility] Last Admin: 02/26/17 21:24 Dose: 1 drop Magnesium Hydroxide (Milk Of Magnesia) 30 ml PO BID PRN PRN Reason: Constipation Last Admin: 02/26/17 05:56 Dose: 30 ml Magnesium Sulfate (Pharmacy To Dose - Magnesium Replacement) 1 dose .XX ASDIRECTED [facility] Metoprolol Tartrate (Lopressor) 50 mg PO Q12H [facility] Last Admin: 02/26/17 21:24 Dose: 50 mg Miscellaneous Information (Remove Patch) 1 ea TRDERM DAILY [facility] Last Admin: 02/26/17 09:27 Dose: 1 ea Nicotine (Habitrol) 14 mg TRDERM DAILY [facility] Last Admin: 02/26/17 09:12 Dose: 14 mg Ondansetron HCl (Zofran) 4 mg IVPUSH Q4H PRN PRN Reason: Nausea Last Admin: 02/24/17 23:51 Dose: 4 mg Potassium Chloride (Pharmacy To Dose - Potassium Replacement) 1 dose .XX ASDIRECTED [facility] Simvastatin (Zocor) 20 mg PO BEDTIME [facility] Last Admin: 02/26/17 21:25 Dose: 20 mg Sodium Chloride (Saline Flush) 10 ml FLUSH ASDIRECTED PRN PRN Reason: Keep Vein Open Last Admin: 02/23/17 12:59 Dose: 10 ml Discontinued Medications Aspirin (Aspirin) 324 mg PO ONETIME ONE Stop: 02/23/17 16:06 Last Admin: 02/23/17 16:50 Dose: 324 mg Aspirin (Aspirin) 81 mg PO BRK [facility] Atenolol (Tenormin) 100 mg PO DAILY [facility] Last Admin: 02/24/17 09:34 Dose: 100 mg Ceftriaxone Sodium (Rocephin) 1 gm IM Q24H [facility] Clonidine HCl (Catapres) 0.1 mg PO DAILY [facility] Last Admin: 02/26/17 09:27 Dose: Not Given Diphtheria/Tetanus/Acell Pertussis (Adacel) 0.5 ml IM .ONCE ONE Stop: 02/24/17 09:01 Ceftriaxone Sodium 1 gm/ (Sodium Chloride) 100 mls @ 200 mls/hr IV ONETIME ONE Stop: 02/24/17 19:18 Last Admin: 02/24/17 19:37 Dose: 200 mls/hr Sodium Chloride (Normal Saline) 1,000 mls @ 100 mls/hr IV ASDIRECTED [facility] Last Admin: 02/25/17 05:29 Dose: 100 mls/hr Lorazepam (Ativan) 0.5 mg IVPUSH ONETIME ONE Stop: 02/24/17 13:12 Last Admin: 02/24/17 13:15 Dose: 0.5 mg Magnesium Oxide (Magnesium Oxide) 400 mg PO ONETIME ONE Stop: 02/25/17 08:01 Last Admin: 02/25/17 11:06 Dose: 400 mg Pneumococcal 13-Valent Conj Vacc (Prevnar 13) 0.5 ml IM .ONCE ONE Stop: 02/24/17 08:08 Potassium Chloride (Klor-Con M20) 40 meq PO Q4H [facility] Stop: 02/24/17 21:01 Last Admin: 02/24/17 20:27 Dose: 40 meq Simvastatin (Zocor) 10 mg PO BEDTIME [facility] Last Admin: 02/24/17 20:28 Dose: 10 mg - Exam Quality Assessment: Reports: DVT Prophylaxis General: Reports: Alert, Oriented, Cooperative, No Acute Distress HEENT: Reports: Pupils Equal, EOMI, Mucous Membr. Moist/Aucilla Neck: Reports: Supple Lungs: Reports: Clear to Auscultation, Normal Respiratory Effort, Decreased Breath Sounds (thorughout) Cardiovascular: Reports: Regular Rate, Regular Rhythm GI/Abdominal Exam: Normal Bowel Sounds, Soft, Non-Tender (Female) Exam: Deferred Rectal (Female) Exam: Deferred Extremities: Normal Inspection, No Pedal Edema, Other (ecchymosis/contusion to mid right forearm, slowly improving) Skin: Reports: Warm, Dry, Intact Neurological: Denies: Normal Speech (mild dysarthria), Strength Equal Bilateral (right side weakness; right side, upper extremity 1/5--improved as was prior flacid. Rt LE is 2-3/5 also improved. ) Psy/Mental Status: Reports: Alert, Normal Affect, Normal Mood *Q Meaningful Use (DIS) - VTE *Q VTE Criteria *Q: - Stroke *Q Stroke Criteria *Q: - AMI *Q AMI Criteria *Q:
[2017-02-27] MEDS: Aspirin 325 MG Tab.EC PO SCH (08:12)
[2017-02-27] MEDS: Hydrochlorothiazide 25 MG Tab PO SCH (08:12)
[2017-02-27] MEDS: Potassium Bicarbonate/Cit Ac 20 MEQ Effervescent Tab PO SCH ×2 (08:12→08:18)
[2017-02-27] MEDS: Metoprolol Tartrate 50 MG Tab PO SCH (08:13)
[2017-02-27] MEDS: amLODIPine 5 MG Tab PO SCH (08:15)
[2017-02-27] MEDS: Nicotine 14 MG/24 Hr Patch TRDERM SCH (08:15)
[2017-02-27] MEDS ORDERED: Pneumococcal 13-Valent Conjugate Vaccine 0.5 ML Syringe IM ONE (08:15)
[2017-02-27 08:16] VITALS: BP 147/74
== END 2017-02-27 09:00 | DRG 65 ==
LOC: JD.ED 12:12 → UNDOADMIN 16:36 → JD.MS 16:36
PROVIDERS: ADMIT Internal Medicine Cardiovascular Disease; ATTEND Internal Medicine Cardiovascular Disease
DX: I63.9 Cerebral infarction, unspecified (principal); N39.0 Urinary tract infection, site not specified; S50.11XA Contusion of right forearm, initial encounter; W19.XXXA Unspecified fall, initial encounter; E78.00 Pure hypercholesterolemia, unspecified; I10 Essential (primary) hypertension; E78.5 Hyperlipidemia, unspecified; F17.210 Nicotine dependence, cigarettes, uncomplicated; H54.7 Unspecified visual loss; R32 Unspecified urinary incontinence; N81.2 Incomplete uterovaginal prolapse; N81.10 Cystocele, unspecified; B96.20 Unspecified Escherichia coli [E. coli] as the cause of diseases classified elsewhere; N28.9 Disorder of kidney and ureter, unspecified; E87.6 Hypokalemia; M19.90 Unspecified osteoarthritis, unspecified site; R79.89 Other specified abnormal findings of blood chemistry; R79.0 Abnormal level of blood mineral; R09.02 Hypoxemia; J98.4 Other disorders of lung; Z79.82 Long term (current) use of aspirin; Z79.899 Other long term (current) drug therapy; Z23 Encounter for immunization
CPT/HCPCS: 36415; 70450; 73090; 80053; 81001; 82962; 84484; 85025; 85610; 85730; 87086; 87088; 87186; 93005; 99285; J7050; 70551; 70551-26; 71020; 71020-26; 80048; 80061; 82550; 82607; 82746; 83735; 84443; 86140; 90472; 90670; 90715; 92507-GN; 92522-GN; 92610-GN; 93306; 93880; 93880-26; 94760; 97110-GO; 97110-GP; 97116-GP; 97162-GP; 97167-GO; 97530-GO; 97530-GP; A9270-GY; G0009; J0360; J0696; J2060; J2405; J7030; J7040